=== PATIENT | male | born 1960 | race Caucasian/White ===

== ENCOUNTER 2021-04-21 23:30 | Inpatient (IN) | payer OTHER ==
[~2021-04-21] VITALS: Ht 172.7 cm; Wt 59.0 kg
[2021-04-22 00:08] LABS: HEMOGLOBIN 13.4 gm/dl (14.0-17.5); RED BLOOD COUNT 4.23 M/UL (4.20-5.50); WHITE BLOOD COUNT 9.2 K/UL (4.5-11.0)
[2021-04-22] MEDS ORDERED: ASPIRIN EC81 MG PO (07:14)
[2021-04-22] MEDS ORDERED: SERTRALINE HCL50 MG PO (07:15)
[2021-04-22] MEDS ORDERED: ATORVASTATIN CA40 MG PO (07:16)
[2021-04-22] MEDS ORDERED: ROPINIROLE HCL1 MG PO (07:16)
[2021-04-22] MEDS ORDERED: CLOPIDOGREL75 MG PO (07:17)
[2021-04-22] MEDS ORDERED: METOPROLOL SUCC50 MG PO (07:17)
[2021-04-22] MEDS ORDERED: FLOMAX 0.4 MG0.4 MG PO (07:17)
[2021-04-22] MEDS ORDERED: PROAIR HFA8.5 GM INH ×2 (07:19)
[2021-04-22] MEDS ORDERED: ATROVENT-HFA12.9 GM INH (07:20)
[2021-04-22] MEDS ORDERED: NITROGLYCERIN0.4 MG SL (07:20)
[2021-04-22] MEDS ORDERED: LEVOFLOXACIN500 MG PO (15:37)
[2021-04-22] MEDS ORDERED: CLINDAMYCIN HC300 MG PO (15:37)
[2021-04-22] MEDS ORDERED: HYDROCODON-ACE1 EAC4 PO (15:37)
[2021-04-22 20:29] LABS: BUN/CREATININE RATIO 17 (0-10)
[2021-04-23 02:36] LABS: HEMOGLOBIN 12.2 gm/dl (14.0-17.5); RED BLOOD COUNT 3.93 M/UL (4.20-5.50); WHITE BLOOD COUNT 8.8 K/UL (4.5-11.0)
[2021-04-23 03:04] LABS: BUN/CREATININE RATIO 17 (0-10)
[2021-04-23] MEDS ORDERED: LOPRESSOR 25 MG25 MG PO (10:21)
[2021-04-23] MEDS ORDERED: FAMOTIDINE20 MG PO (10:43)
== END 2021-04-23 13:04 | disposition home or self-care (01) | DRG 259 ==
LOC: ER1 23:30 → CDU 04-22 03:16 → PROG CARE 04-22 03:16
PROVIDERS: Emergency Medicine; ADMIT Internal Medicine
PROC: B24BZZ4 Ultrasonography of Heart with Aorta, Transesophageal (ICD-10-PCS; principal; 2021-04-22)
PROC: 0JH606Z Insertion of Pacemaker, Dual Chamber into Chest Subcutaneous Tissue and Fascia, Open Approach (ICD-10-PCS; 2021-04-22)
PROC: 0JPT0PZ Removal of Cardiac Rhythm Related Device from Trunk Subcutaneous Tissue and Fascia, Open Approach (ICD-10-PCS; 2021-04-22)
DX: T82.191A Other mechanical complication of cardiac pulse generator (battery), initial encounter (principal); N17.9 Acute kidney failure, unspecified; K31.1 Adult hypertrophic pyloric stenosis; E44.0 Moderate protein-calorie malnutrition; I13.0 Hypertensive heart and chronic kidney disease with heart failure and stage 1 through stage 4 chronic kidney disease, or unspecified chronic kidney disease; Z68.1 Body mass index [BMI] 19.9 or less, adult; Z20.822 Contact with and (suspected) exposure to COVID-19; N40.0 Benign prostatic hyperplasia without lower urinary tract symptoms; R39.15 Urgency of urination; I49.5 Sick sinus syndrome; N18.9 Chronic kidney disease, unspecified; Y83.8 Other surgical procedures as the cause of abnormal reaction of the patient, or of later complication, without mention of misadventure at the time of the procedure; K21.9 Gastro-esophageal reflux disease without esophagitis; J44.9 Chronic obstructive pulmonary disease, unspecified; N20.0 Calculus of kidney; I95.9 Hypotension, unspecified; I65.21 Occlusion and stenosis of right carotid artery; I50.9 Heart failure, unspecified; I25.5 Ischemic cardiomyopathy; I08.1 Rheumatic disorders of both mitral and tricuspid valves; F17.210 Nicotine dependence, cigarettes, uncomplicated; N43.3 Hydrocele, unspecified; F12.10 Cannabis abuse, uncomplicated; I25.10 Atherosclerotic heart disease of native coronary artery without angina pectoris; I25.2 Old myocardial infarction; Z98.890 Other specified postprocedural states; Z79.82 Long term (current) use of aspirin; Z82.49 Family history of ischemic heart disease and other diseases of the circulatory system; Z91.14 Patient's other noncompliance with medication regimen
CPT/HCPCS: ECHO; 33213; 36415; 76870; 80048; 80053; 80061; 80307; 81001; 82140; 82550; 82553; 82570; 82607; 82746; 83036; 83735; 83874; 83935; 84156; 84439; 84443; 84484; 85025; 85027; 93005; 93306; 93880; 99152; 99153; 99285; C1785; J1265; J2250; J3010; J3370; J7030; J7040; J7050; J7070; Q9967; U0002

== ENCOUNTER 2021-10-06 13:37 | Emergency (ER) | payer OTHER ==
[~2021-10-06 13:37] MED LIST: ASPIRIN EC81 MG PO; ATORVASTATIN CA40 MG PO; ATROVENT-HFA12.9 GM INH; CLINDAMYCIN HC300 MG PO; CLOPIDOGREL75 MG PO; FAMOTIDINE20 MG PO; FLOMAX 0.4 MG0.4 MG PO; HYDROCODON-ACE1 EAC4 PO; LEVOFLOXACIN500 MG PO; LOPRESSOR 25 MG25 MG PO; METOPROLOL SUCC50 MG PO; NITROGLYCERIN0.4 MG SL; PROAIR HFA8.5 GM INH; ROPINIROLE HCL1 MG PO; SERTRALINE HCL50 MG PO
[2021-10-06 14:15] LABS: HEMOGLOBIN 14.1 gm/dl (14.0-17.5); RED BLOOD COUNT 4.57 M/UL (4.20-5.50); WHITE BLOOD COUNT 7.7 K/UL (4.5-11.0)
[2021-10-06 14:45] LABS: BUN/CREATININE RATIO 13 (0-10)
[2021-10-06] MEDS ORDERED: MOTION SICKNESS25 M3 PO (16:52)
== END 2021-10-06 17:37 | disposition home or self-care (01) ==
LOC: ER1 13:37
PROVIDERS: Nurse Practitioner
DX: R07.89 Other chest pain (principal); R51.9 Headache, unspecified; R42 Dizziness and giddiness; Z20.822 Contact with and (suspected) exposure to COVID-19; I10 Essential (primary) hypertension; I25.2 Old myocardial infarction; J44.9 Chronic obstructive pulmonary disease, unspecified; F17.210 Nicotine dependence, cigarettes, uncomplicated; Z95.0 Presence of cardiac pacemaker
CPT/HCPCS: 0240U; 70450; 71045; 80053; 81001; 82550; 82553; 84484; 85025; 85379; 93005; 96374; 99285; J1885

== ENCOUNTER → 2021-12-23 | Outpatient (CLI) | payer OTHER ==
[~2021-12-23] MED LIST changes: +MOTION SICKNESS25 M3 PO
== END ==
LOC: HEART 5 15:14
DX: J44.9 Chronic obstructive pulmonary disease, unspecified (principal)
CPT/HCPCS: 94060; 94729

== ENCOUNTER 2022-03-22 13:55 | Emergency (ER) | payer OTHER ==
[2022-03-22 14:22] LABS: HEMOGLOBIN 12.9 gm/dl (14.0-17.5); RED BLOOD COUNT 4.19 M/UL (4.20-5.50); WHITE BLOOD COUNT 7.9 K/UL (4.5-11.0)
[2022-03-22 14:48] LABS: BUN/CREATININE RATIO 14 (0-10)
== END 2022-03-22 16:57 | disposition left against medical advice (07) ==
LOC: ER1 13:55
PROVIDERS: Emergency Medicine
DX: R07.9 Chest pain, unspecified (principal); I11.9 Hypertensive heart disease without heart failure; E11.9 Type 2 diabetes mellitus without complications; F17.210 Nicotine dependence, cigarettes, uncomplicated
CPT/HCPCS: 71045; 80053; 82550; 82553; 84484; 85025; 93005; 99281